=== PATIENT | female | born 1965 | race Caucasian/White ===

== ENCOUNTER 2017-11-22 15:49 | Emergency (ER) | payer OTHER, MEDICARE ==
[~2017-11-22] VITALS: Ht 175.3 cm; Wt 86.2 kg
[~2017-11-22 15:49] MED LIST: ALBUTEROL 3 ML3 ML INH; ALBUTEROL0.09 MG/A1 INH; AVELOX400 MG PO; AZITHROMYCIN250 MG PO; BENZONATATE200 M1 PO; CLONAZEPAM1 MG PO; FOLIC + B12 1 M1 TAB PO; GABAPENTIN300 M2 PO; GOOD NEIGHBOR PH2 M1 PO; LIORESAL 10MG T10 MG PO; LIPITOR40 M1 PO; MEDROL DOSEPAK1 PAC PO; MEDROL4 M2 PO; MONTELUKAST SOD10 M1 PO; MOTRIN 600 MG600 MG PO; NEURONTIN300 MG PO; Nebulizer machine; PERCOCET 325 MG1 TAB PO; PLAVIX75 M1 PO; PLAVIX75 MG PO; PREDNISONE 10MG10 M1 PO; PREDNISONE 20MG20 MG PO; PREDNISONE10 MG PO; PREDNISONE5 MG PO; PRILOSEC 20MG C20 MG PO; PROAIR HFA8.5 GM INH; SERTRALINE HCL100 MG PO; SPIRIVA 18 MCG18 MCG INH; SYMBICORT 80/4.1 PUF INH; TOPAMAX25 MG PO; TOPAMAX50 M1 PO; TOPAMAX50 MG PO; TOPIRAMATE25 M2 PO; TYLENOL #31 TAB PO; ZITHROMAX 500M500 MG PO; ZITHROMAX Z-PA250 M1 PO; ZOLOFT 100 MG100 MG PO; ZOLOFT25 MG PO; ZOLOFT50 M1 PO
--- NOTE | 2017-11-22 16:37 | ED MVC/FALL/TRAUMA COMPLAINT ---
History of Present Illness General Chief Complaint: General Adult Stated Complaint: NOT FEELING WELL HAD A FALL NAUSEA Source: patient, old records Exam Limitations: no limitations Vital Signs & Intake/Output Vital Signs & Intake/Output Vital Signs Date Time Temp Pulse Resp B/P B/P Pulse O2 O2 Flow FiO2 Mean Ox Delivery Rate 11/22 1844 87 18 133/60 94 Room Air 11/22 1613 97.2 90 18 110/77 91 Room Air Allergies Coded Allergies: morphine (ANAPHYLAXIS 10/16/15) Reconcile Medications Albuterol Sulfate (Proair Hfa) 90 MCG HFA.AER.AD 2 PUF INH Q4-6 PRN PRN SOB ( Reported) Atorvastatin Calcium (Lipitor) 40 MG TABLET 1 TAB PO DAILY STROKE (Reported) Clopidogrel Bisulfate (Plavix) 75 MG TABLET 1 TAB PO DAILY STROKE (Reported) Gabapentin 300 MG CAPSULE 1 CAP PO TID NEUROPATHIC PAIN (Reported) Montelukast Sodium 10 MG TABLET 1 TAB PO DAILY ALLERGIES (Reported) Sertraline HCl 100 MG TABLET 1 TAB PO DAILY DEPRESSION (Reported) Topiramate (Topamax) 50 MG TABLET 1 TAB PO BID Seizure 04/18-04/24 50 mg twice a day 04/25-05/01 75 mg twice a day 05/02-05/08 100 mg twice a day 05/09-05/15 150 mg twice a day from 05/16 on 200 mg twice a day Triage Note: RECEIVED 52 YO FEMALE WITH HX OF CVA WITH RIGHT HEMIPARESIS, PRESENTS TO THE ED WITH A BLOODY GASH TO OCCIPITA REGION OF HER HEAD AND THE BACK OF HER LEFT FOREARM. PT DOES NOT RECALL HOW IT HAPPENED. PT SAID SHE WOKE UP TODAY AND IT WAS LIKE THAT. Triage Nurses Notes Reviewed? yes Onset: Abrupt Duration: day(s): (1), constant Timing: recent history Severity: mild Severity Numbers: 5 Injuries/Fall Location: head, upper extremity Method of Injury: fall Loss of Consciousness: unsure No Modifying Factors: none Associated Symptoms: denies HPI: 52-year-old female with history of CVA with residual right-sided weakness alcohol abuse presents after she states she woke up from sleeping and had abrasions to her left arm and a cut to the right side of her head. Patient states she had 1-2 prior to going to sleep. She took a nap in her bed and woke up in her bed. She denies feeling otherwise unwell earlier today no dizziness lightheadedness nausea vomiting chest pain. She denies any nausea vomiting at this time she has a headache from the cut on her head. No difficulty with range of motion of her arm she is not on any blood thinners. She denies any other drug use. (Moses Lopez) Past History Travel History Traveled to [place] past 21 day No Medical History Any Pertinent Medical History? see below for history Neurological: CVA, seizure, MIGRAINES EENT: NONE Cardiovascular: CAD Respiratory: asthma, COPD Gastrointestinal: NONE Hepatic: NONE Renal: NONE Musculoskeletal: NONE Psychiatric: alcohol dependence, anxiety Endocrine: NONE Blood Disorders: NONE Cancer(s): NONE BOOK CANVASSER/Reproductive: NONE History of MRSA: No History of VRE: No History of CDIFF: No Surgical History Surgical History: non-contributory Psychosocial History Who do you live with Son Services at Home None What is your primary language Iranian Tobacco Use: Current Daily Use Daily Tobacco Use Amount/Type: => 5 Cigarettes daily Family History Family History, If Any: Relation not specified for: FH: myocardial infarction Hx Contributory? No (Moses Lopez) Review of Systems Review of Systems Constitutional: Reports: see HPI. Comments Review of systems: See HPI, All other systems negative. Constitutional, no chills no fever, HEENT: no sore throat no congestion Cardiovascular: No chest pain Skin: no rashes, no change in skin Respiratory: No dyspnea no cough no sputum GI: No nausea no vomiting, no diarrhea : No dysuria Muscle skeletal: No joint pain, no back pain, no neck pain, Neurologic: headache Heme/endocrine: No bruising Immunology: No lymphadenopathy (Moses Lopez) Physical Exam Physical Exam General Appearance: well developed/nourished, alert, awake Comments: Well-developed well-nourished person in no acute distress HEENT: Normal EENT exam; PERRL, EOMI, no nystagmus. Small less than 0.5 cm skin avulsion noted to the right temporal scalp, the rest of the scalp is atraumatic and no scalp hematoma Neck: Supple, nontender normal range of motion without pain or tenderness Back: Nontender, no CVA tenderness. Full range of motion Cardiovascular: Regular rate and rhythms no murmurs Respiratory: Chest nontender.There were no bony deformities, no asymmetry. No respiratory distress. Patient speaking in full complete sentences. Breath sounds clear to auscultation bilaterally: NO W/R/R Abdomen: Soft, nontender nondistended, Extremity: No edema there is a skin avulsion injury noted to the left proximal forearm no active bleeding nontender, full range of motion of left extremities, chronic hemiparesis to the right upper extremity which the patient states is baseline from her stroke right arm and bilateral legs are atraumatic normal and equal pulses bilaterally, 5 out of 5 strength noted to bilateral upper and lower extremities Neuro: Alert oriented x3, motor sensory normal, cranial nerves II through XII grossly intact. There were no obvious focal neurologic abnormalities. Skin: No appreciable rash on exposed skin, skin is warm and dry. Psych: Mood and affect is normal, memory and judgment is normal. Core Measures ACS in differential dx? No CVA/TIA Diagnosis No Sepsis Present: No Sepsis Focused Exam Completed? No (Yuki MANCILLA,Moses) Progress Differential Diagnosis: C/T/L spine injury, ext injury, ICH, spinal cord injury Plan of Care: Orders Procedure Date/time Status URINE DRUG SCREEN FOR ER ONLY 11/22 1649 Complete TROPONIN LEVEL 11/22 1637 Complete ETHANOL 11/22 1637 Complete COMPREHENSIVE METABOLIC PANEL 11/22 1637 Complete CBC WITHOUT DIFFERENTIAL 11/22 1637 Complete Laboratory Tests 11/22/17 1830: Urine Opiates Screen < 100, Methadone Screen < 40, Barbiturate Screen < 60, Ur Phencyclidine Scrn < 6.00, Amphetamines Screen < 100, U Benzodiazepines Scrn < 85, Urine Cocaine Screen < 50, Urine Cannabis Screen < 5.00 11/22/17 1714: Anion Gap 13, Estimated GFR > 60, BUN/Creatinine Ratio 10.0, Glucose 89, Calcium 9.4, Total Bilirubin 0.3, AST 23, ALT 30, Alkaline Phosphatase 86, Troponin I < 0.01, Total Protein 6.7, Albumin 3.8, Globulin 2.9, Albumin/Globulin Ratio 1.3, CBC w Diff NO MAN DIFF REQ, RBC 4.81, MCV 100.9 H, MCH 32.7 H, MCHC 32.4 L, RDW 12.3, MPV 7.3 L, Gran % 59.6, Lymphocytes % 29.5, Monocytes % 3.8, Eosinophils % 6.8 H, Basophils % 0.3, Absolute Granulocytes 4.3, Absolute Lymphocytes 2.1, Absolute Monocytes 0.3, Absolute Eosinophils 0.5, Absolute Basophils 0, Serum Alcohol 57.0 Labs CAT scan ordered old records reviewed. Patient declining anything for pain and offered Repeat evaluation patient resting in no acute distress abrasion to the forearm was thoroughly irrigated with normal saline Betadine sterile dressing applied. The abrasion avulsion injury to the right scalp was irrigated, sterile dressing applied I discussed with her that nothing I can staple or suture pending CAT scan labs 1899 and discussed with the patient at length all of her labs and CAT scan on repeat evaluation she is ambulatory to the bathroom by herself without dizziness lightheadedness or near syncope there is been no chest pain palpitations there is no prodromal dizziness lightheadedness today. No bleeding from the wound at this time. I believe her fall was likely secondary to EtOH use. She states she had 1-2. She denies any other drugs. Case discussed with Dr. De La Cruz agrees with plan. Advise close follow up with primary care return precautions discussed at length. Her friend is here to take her home. Diagnostic Imaging: Viewed by Me: CT Scan. Discussed w/RAD: CT Scan. Radiology Impression: PATIENT: MANINDER SHAH PRESENT AGE: 52 PATIENT ACCOUNT NO: [id number] : 65 LOCATION: [facility] ORDERING PHYSICIAN: Moses MANCILLA SERVICE DATE: 11/22/17 EXAM TYPE: CAT - CT CERV SPINE WO IV CONTRAST EXAMINATION: CT CERVICAL SPINE WITHOUT CONTRAST CLINICAL INFORMATION: Trauma, fall. COMPARISON: None TECHNIQUE: CT scan of cervical spine was performed with additional sagittal and coronal reformatted images obtained at the acquisition workstation. DLP: 341 mGy-cm FINDINGS: There is no fracture, subluxation or dislocation. There are moderate degenerative disc changes present at the C4-C5, C5-C6 and C6-C7 levels manifested by disc space narrowing and endplate osteophyte formation. The facet joints are normal. The surrounding soft tissues are normal. IMPRESSION: No acute abnormality. Multilevel spondylosis of the cervical spine. DICTATED BY: Jam Cruz MD DATE/TIME DICTATED:11/22/171803 QUALITY CONTROL DIRECTOR:MARGOT DATE/TIME TRANSCRIBED:11/22/171803 CONFIDENTIAL, DO NOT COPY WITHOUT APPROPRIATE AUTHORIZATION. <Electronically signed in Other Vendor System> SIGNED BY: Jam Cruz MD 11/22/17 1838, PATIENT: MANINDER SHAH PRESENT AGE: 52 PATIENT ACCOUNT NO: [id number] : 65 LOCATION: ER ORDERING PHYSICIAN: Moses MANCILLA SERVICE DATE: 11/22/17 EXAM TYPE : CAT - CT HEAD WO IV CONTRAST EXAMINATION: CT HEAD WITHOUT CONTRAST CLINICAL INFORMATION: Evaluate for intracranial hemorrhage. Fall. COMPARISON: Prior CT scan of the head April 2017 and MRI of brain April 2017. TECHNIQUE: Contiguous axial imaging was performed from the skull base to vertex without intravenous administration of contrast. DLP: 608 mGy-cm FINDINGS: There is encephalomalacia in the left hemisphere in the region of the left medial cerebral artery territory unchanged compared to prior resulting in localized volume loss unchanged. Mild ex vacuo dilatation of the left lateral ventricle unchanged. There is no hemorrhage. There is no midline shift or extra-axial fluid collections. Soft tissues: There is localized soft tissue prominence in the right parietal region with small amount of air present compatible with scalp contusion and laceration. There is soft tissue prominence measures up to 3.5 cm transverse 0.8 cm AP and 5 cm craniocaudal. There is no associated fracture. The sinuses and mastoid air cells are clear. IMPRESSION: Right-sided scalp contusion and soft tissue laceration without fracture. No intracranial hemorrhage. Old left MCA territory infarction unchanged DICTATED BY: Jam Cruz MD DATE/ TIME DICTATED:11/22/171750 QUALITY CONTROL DIRECTOR:MARGOT DATE/TIME TRANSCRIBED: 11/22/171750 CONFIDENTIAL, DO NOT COPY WITHOUT APPROPRIATE AUTHORIZATION. < Electronically signed in Other Vendor System> SIGNED BY: Jam Cruz MD 11/22/17 180, PATIENT: MANINDER SHAH PRESENT AGE: 52 PATIENT ACCOUNT NO: [id number] : 65 LOCATION: [facility] ORDERING PHYSICIAN: Moses MANCILLA SERVICE DATE: 11/22/17 EXAM TYPE: RAD - XRY-FOREARM, LEFT EXAMINATION: XR FOREARM, LEFT CLINICAL INFORMATION: Fall. EtOH COMPARISON: None TECHNIQUE: AP and lateral views of the left forearm were obtained. FINDINGS: The bones and soft tissues are normal. No fracture. No definitive elbow joint effusion. Imaged portions of the elbow and wrist are unremarkable. IMPRESSION: No acute fracture or dislocation. DICTATED BY: Allen Tony MD DATE/TIME DICTATED:11/22/171800 QUALITY CONTROL DIRECTOR: MARGOT DATE/TIME TRANSCRIBED:11/22/171800 CONFIDENTIAL, DO NOT COPY WITHOUT APPROPRIATE AUTHORIZATION. <Electronically signed in Other Vendor System> SIGNED BY: Allen Turner MD 11/22/171805 (Moses Lopez) Departure Departure Time of Disposition: 1913 Disposition: HOME OR SELF CARE Condition: Stable Clinical Impression Primary Impression: Fall Secondary Impressions: Arm contusion, Scalp abrasion Referrals: Alexandre Thomas MD (PCP/Family) Additional Instructions: Rest. Abstain from alcohol use. Tylenol for pain. Follow-up with your primary care physician this week. Return with any concerns. Departure Forms: Customer Survey General Discharge Information (Moses Lopez) PA/SERVER ADMINISTRATOR Co-Sign Statement Statement: ED Attending supervision documentation- [] I saw and evaluated the patient. I have also reviewed all the pertinent lab results and diagnostic results. I agree with the findings and the plan of care as documented in the PA's/SERVER ADMINISTRATOR's documentation. [X] I have reviewed the ED Record and agree with the PA's/SERVER ADMINISTRATOR's documentation. [] Additions or exceptions (if any) to the PAs/SERVER ADMINISTRATOR's note and plan are summarized below: [] (Jono KEY,Allan Ferguson)
[2017-11-22 17:23] LABS: ABSOLUTE BASOPHIL COUNT 0 /CUMM (0.0-0.2); ABSOLUTE EOSINOPHIL COUNT 0.5 /CUMM (0.0-0.7); ABSOLUTE GRANULOCYTE CT 4.3 /CUMM (1.4-6.5); ABSOLUTE LYMPH COUNT 2.1 /CUMM (1.2-3.4); ABSOLUTE MONOCYTE COUNT 0.3 /CUMM (0.10-0.60); BASOPHIL % 0.3 % (0.0-2.0); EOSINOPHIL % 6.8 % (0-5); GRANULOCYTE % 59.6 % (42.2-75.2); HEMATOCRIT 48.5 % (37-47); MEAN CORPUSCULAR HGB 32.7 PG (27.0-31.0); MEAN CORPUSCULAR HGB CONC 32.4 G/DL (33.0-37.0); MEAN CORPUSCULAR VOLUME 100.9 FL (81.0-99.0); MEAN PLATELET VOLUME 7.3 FL (7.4-10.4); PLATELET COUNT 308 /CUMM (130-400); RBC DISTRIBUTION WIDTH 12.3 % (11.5-14.5); RED BLOOD CELL CT 4.81 /CUMM (4.20-5.40); WHITE BLOOD CELL COUNT 7.2 /CUMM (4.8-10.8)
--- NOTE | 2017-11-22 18:02 | CT SCAN REPORT ---
EXAMINATION: CT HEAD WITHOUT CONTRAST CLINICAL INFORMATION: Evaluate for intracranial hemorrhage. Fall. COMPARISON: Prior CT scan of the head April 2017 and MRI of brain April 2017. TECHNIQUE: Contiguous axial imaging was performed from the skull base to vertex without intravenous administration of contrast. DLP: 608 mGy-cm FINDINGS: There is encephalomalacia in the left hemisphere in the region of the left medial cerebral artery territory unchanged compared to prior resulting in localized volume loss unchanged. Mild ex vacuo dilatation of the left lateral ventricle unchanged. There is no hemorrhage. There is no midline shift or extra-axial fluid collections. Soft tissues: There is localized soft tissue prominence in the right parietal region with small amount of air present compatible with scalp contusion and laceration. There is soft tissue prominence measures up to 3.5 cm transverse 0.8 cm AP and 5 cm craniocaudal. There is no associated fracture. The sinuses and mastoid air cells are clear. IMPRESSION: Right-sided scalp contusion and soft tissue laceration without fracture. No intracranial hemorrhage. Old left MCA territory infarction unchanged
--- NOTE | 2017-11-22 18:06 | RADIOLOGY REPORT ---
EXAMINATION: XR FOREARM, LEFT CLINICAL INFORMATION: Fall. EtOH COMPARISON: None TECHNIQUE: AP and lateral views of the left forearm were obtained. FINDINGS: The bones and soft tissues are normal. No fracture. No definitive elbow joint effusion. Imaged portions of the elbow and wrist are unremarkable. IMPRESSION: No acute fracture or dislocation.
--- NOTE | 2017-11-22 18:38 | CT SCAN REPORT ---
EXAMINATION: CT CERVICAL SPINE WITHOUT CONTRAST CLINICAL INFORMATION: Trauma, fall. COMPARISON: None TECHNIQUE: CT scan of cervical spine was performed with additional sagittal and coronal reformatted images obtained at the acquisition workstation. DLP: 341 mGy-cm FINDINGS: There is no fracture, subluxation or dislocation. There are moderate degenerative disc changes present at the C4-C5, C5-C6 and C6-C7 levels manifested by disc space narrowing and endplate osteophyte formation. The facet joints are normal. The surrounding soft tissues are normal. IMPRESSION: No acute abnormality. Multilevel spondylosis of the cervical spine.
[2017-11-22 19:54] VITALS: BP 128/64
== END 2017-11-22 20:18 ==
LOC: ERH 15:49
PROVIDERS: Physician Assistant Medical
DX: S40.022A Contusion of left upper arm, initial encounter (principal); S00.01XA Abrasion of scalp, initial encounter; X58.XXXA Exposure to other specified factors, initial encounter; Y92.9 Unspecified place or not applicable; Y93.9 Activity, unspecified
CPT/HCPCS: 73090-LT; 80307; G0480

== ENCOUNTER 2018-01-11 16:06 | Emergency (ER) | payer OTHER, MEDICARE ==
[~2018-01-11] VITALS: Ht 175.3 cm; Wt 74.4 kg
--- NOTE | 2018-01-11 17:06 | RADIOLOGY REPORT ---
EXAMINATION: RIGHT FOOT AND ANKLE 6 VIEWS CLINICAL INFORMATION: Right foot and ankle pain. Twisting injury. COMPARISON: None. TECHNIQUE: AP, lateral, oblique views of the right foot were obtained in addition to AP, lateral and oblique views of the right ankle. FINDINGS: There is soft tissue swelling about the ankle. There is an oblique nondisplaced distal right fibular fracture. There is no ankle joint effusion. There is a small plantar surface calcaneal spur. There is severe hallux valgus measuring 42 degrees with medial uncovering of the first MPT joint. IMPRESSION: Oblique distal right fibular fracture with associated soft tissue swelling. Hallux valgus.
--- NOTE | 2018-01-11 17:36 | ED ANKLE/FOOT INJURY COMPLAINT ---
History of Present Illness General Chief Complaint: Foot or Ankle Injury Stated Complaint: MECHANICAL FALL SEVERE RIGHT ANKLE PAIN BROKEN?? Source: patient Exam Limitations: no limitations Vital Signs & Intake/Output Vital Signs & Intake/Output Vital Signs Date Time Temp Pulse Resp B/P B/P Pulse O2 O2 Flow FiO2 Mean Ox Delivery Rate 01/11 1846 98.6 80 14 99/65 95 Room Air 01/11 1720 Room Air 01/11 1614 98.4 77 18 102/68 91 Room Air Allergies Coded Allergies: morphine (ANAPHYLAXIS 10/16/15) Reconcile Medications Albuterol Sulfate (Proair Hfa) 90 MCG HFA.AER.AD 2 PUF INH Q4-6 PRN PRN SOB ( Reported) Atorvastatin Calcium (Lipitor) 40 MG TABLET 1 TAB PO DAILY STROKE (Reported) Clopidogrel Bisulfate (Plavix) 75 MG TABLET 1 TAB PO DAILY STROKE (Reported) Gabapentin 300 MG CAPSULE 1 CAP PO TID NEUROPATHIC PAIN (Reported) Montelukast Sodium 10 MG TABLET 1 TAB PO DAILY ALLERGIES (Reported) Oxycodone HCl/Acetaminophen (Percocet 5-325 MG Tablet) 5 MG-325 MG TABLET 1 TAB PO BID PAIN Sertraline HCl 100 MG TABLET 1 TAB PO DAILY DEPRESSION (Reported) Topiramate (Topamax) 50 MG TABLET 1 TAB PO BID Seizure 04/18-04/24 50 mg twice a day 04/25-05/01 75 mg twice a day 05/02-05/08 100 mg twice a day 05/09-05/15 150 mg twice a day from 05/16 on 200 mg twice a day Triage Note: PT FROM HOME C/O RIGHT ANKLE INJURY 45 MINS PRIOR TO ARRIVAL. PTS STATES PT WAS AMBULATING OUTSIDE AND FELL. -HEADSTRIKE, -LOC. NO OTHER COMPLAINTS BESIDES RIGHT ANKLE PAIN 05/10. 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 PT DENIES ANY DIZZNIESS, CP, BILATERAL ARM NUMBNESS/TINGLING. PT DENIES BLOOD THINNERS. Triage Nurses Notes Reviewed? yes Occurred: just prior to arrival Duration: hour(s): Timing: single episode today Severity: moderate, severe Pain/Injury Location: Right: Ankle. Method of Injury: twisted HPI: 52-year-old female comes into the emergency room and complains of right ankle pain. Patient reports that she was outside walking when she twisted her right ankle. She had a history of previous stroke some years back and has chronic weakness on the right side of her body. She reports that her ankle and leg will sometimes give out on her. Denies any lightheaded dizziness chest pain shortness of breath or preceding symptoms. (Ariel Ray) Past History Travel History Traveled to [place] past 21 day No Medical History Any Pertinent Medical History? see below for history Neurological: CVA, seizure, MIGRAINES STROKE 2010 EENT: NONE Cardiovascular: CAD Respiratory: asthma, COPD Gastrointestinal: NONE Hepatic: NONE Renal: NONE Musculoskeletal: NONE Psychiatric: alcohol dependence, anxiety Endocrine: NONE Blood Disorders: NONE Cancer(s): NONE CLINICAL PROGRAM CONSULTANT/Reproductive: NONE History of MRSA: No History of VRE: No History of CDIFF: No Surgical History Surgical History: non-contributory Psychosocial History Who do you live with Son Services at Home None What is your primary language North Korean Tobacco Use: Current Daily Use Daily Tobacco Use Amount/Type: => 5 Cigarettes daily Family History Family History, If Any: Relation not specified for: FH: myocardial infarction Hx Contributory? No (Ariel Ray) Review of Systems Review of Systems Constitutional: Reports: no symptoms. EENTM: Reports: no symptoms. Respiratory: Reports: no symptoms. Cardiovascular: Reports: no symptoms. GI: Reports: no symptoms. Genitourinary: Reports: no symptoms. Musculoskeletal: Reports: see HPI. Skin: Reports: no symptoms. Neurological/Psychological: Reports: no symptoms. Hematologic/Endocrine: Reports: no symptoms. Immunologic/Allergic: Reports: no symptoms. All Other Systems: Reviewed and Negative (Ariel Ray) Physical Exam Physical Exam General Appearance: well developed/nourished, mild distress Head: atraumatic Eyes: Bilateral: normal appearance. Ears, Nose, Throat: normal ENT inspection, hearing grossly normal Neck: normal inspection Cardiovascular/Respiratory: no respiratory distress Back: normal inspection Leg/Knee/Thigh Left: NOT EXAMINED Leg/Knee/Thigh Right: normal inspection Ankle Right: SOFT TISSUE TENDERNESS, TENDERNESS OVER DISTAL FIBULAR BONE, LIMITED RANGE OF MOTION, SOFT TISSUE SWELLING Neuro/Vascular: normal motor function, normal sensation Tendon: normal tendon function Psychiatric: awake, alert, oriented x 3 Skin: intact, normal color, warm/dry (Ariel Ray) Progress Differential Diagnosis: fracture, dislocation, sprain, contusion Plan of Care: 01/11/2018 7:15:55 PM Patient was provided with a walker. Nonweightbearing. Follow-up with orthopedic doctor. Return if any other concerns. Diagnostic Imaging: Viewed by Me: Radiology Read. Discussed w/RAD: Radiology Read. Radiology Impression: PATIENT: MANINDER SHAH PRESENT AGE: 52 PATIENT ACCOUNT NO: [id number] : 65 LOCATION: [facility] ORDERING PHYSICIAN: Ariel MANCILLA SERVICE DATE: 01/11/18 EXAM TYPE : RAD - XRY-ANKLE 3 OR MORE VIEWS R; XRY-FOOT COMPLETE, R EXAMINATION: RIGHT FOOT AND ANKLE 6 VIEWS CLINICAL INFORMATION: Right foot and ankle pain. Twisting injury. COMPARISON: None. TECHNIQUE: AP, lateral, oblique views of the right foot were obtained in addition to AP, lateral and oblique views of the right ankle. FINDINGS: There is soft tissue swelling about the ankle. There is an oblique nondisplaced distal right fibular fracture. There is no ankle joint effusion. There is a small plantar surface calcaneal spur. There is severe hallux valgus measuring 42 degrees with medial uncovering of the first MPT joint. IMPRESSION: Oblique distal right fibular fracture with associated soft tissue swelling. Hallux valgus. DICTATED BY: Jam Vora MD DATE/TIME DICTATED:01/11/181699 EDUCATIONAL TECHNOLOGY COORDINATOR:MARGOT DATE/TIME TRANSCRIBED:1699 CONFIDENTIAL, DO NOT COPY WITHOUT APPROPRIATE AUTHORIZATION. < Electronically signed in Other Vendor System> SIGNED BY: Jam Vora MD 01/11/181705 (Ariel Ray) Departure Departure Disposition: HOME OR SELF CARE Condition: Stable Clinical Impression Primary Impression: Closed fracture of right distal fibula Referrals: Steve KEY,Benito Thomas MD,Alexandre (PCP/Family) Additional Instructions: Follow-up with orthopedic doctor. Stay nonweightbearing. Return if any concerns worsening symptoms. Please go over all results of today's visit with your primary care doctor. Contact your primary care doctor to let them know you were here in the emergency room. There may be nonspecific findings which may not be related to your visit today here in the emergency room but may require further evaluation and chronic monitoring by your primary care doctor. If you had a laceration today the chance of foreign body always remains. You should follow-up with your primary care doctor for recheck in 3-5 days for a wound check. If you had an x-ray done there is a chance that a fracture could have been missed on initial read and you should follow-up with your primary care doctor for repeat x-rays if symptoms persist. If your blood pressure was elevated here in the emergency room please have rechecked by hyour primary care doctor within the next 48. If you were prescribed a narcotic here in the emergency room or any type of controlled substances you're not allowed to drive while taking this medication or operate any type of heavy machinery. Narcotics can make you feel lightheaded dizziness nausea and can cause constipation. You may need to coal picker a stool softener. Thank you for choosing [facility] emergency room. Please return to the emergency room immediately if you have any other concerns worsening of symptoms. Departure Forms: Customer Survey General Discharge Information Prescriptions: Current Visit Scripts Oxycodone HCl/Acetaminophen (Percocet 5-325 MG Tablet) 1 TAB PO BID #10 TAB Comments stay nonweightbearing. Follow up with primary doctor. Return if any other concerns. (Ariel Ray) PA/TURBINE TECHNICIAN Co-Sign Statement Statement: ED Attending supervision documentation- [] I saw and evaluated the patient. I have also reviewed all the pertinent lab results and diagnostic results. I agree with the findings and the plan of care as documented in the PA's/TURBINE TECHNICIAN's documentation. [X] I have reviewed the ED Record and agree with the PA's/TURBINE TECHNICIAN's documentation. [] Additions or exceptions (if any) to the PAs/TURBINE TECHNICIAN's note and plan are summarized below: [] (Jono KEY,Allan Ferguson) Procedures Splinting Location: Right ankle Manual Alignment Performed: No Hand-Made Type: orthoglass Splint Applied By: splint applied by me Pre-Proc Neuro Vasc Exam: normal Post-Proc Neuro Vasc Exam: normal (Ariel Ray)
[2018-01-11 18:46] VITALS: BP 99/65
[2018-01-11] MEDS ORDERED: PERCOCET 5-3251 EACH PO (19:17)
== END 2018-01-11 18:51 ==
LOC: ERH 16:06
DX: S82.431A Displaced oblique fracture of shaft of right fibula, initial encounter for closed fracture (principal); X50.9XXA Other and unspecified overexertion or strenuous movements or postures, initial encounter; Y93.01 Activity, walking, marching and hiking
CPT/HCPCS: 73610-RT; 73630-RT